=== PATIENT | male | born 1945 | race Caucasian/White ===

== ENCOUNTER 2017-07-06 01:42 | Inpatient (IN) | payer OTHER, MEDICARE ==
[~2017-07-06] VITALS: Ht 167.6 cm; Wt 114.0 kg
[~2017-07-06 01:42] MED LIST: ALLOPURINOL300 M1 PO; AMLODIPINE BESYL5 M1 PO; ASPIRIN EC81 M1 PO; ATENOLOL-CHLOR1 EACH PO; ATORVASTATIN CA20 M1 PO; CARDURA4 M1 PO; DAILY MULTIPLE1 EACH PO; LEVOTHYROXINE125 MCG PO; POTASSIUM CITR10 ME1 PO; PROTONIX40 M3 PO; VITAMIN B122500 MC1 PO; VITAMIN D31000 UNI2 PO
--- NOTE | 2017-07-06 10:51 | Patient Discharge Instructions ---
Discharge Instructions General Discharge Information You were seen/treated for: RIGHT HIP PAIN You had these procedures: RIGHT TOTAL HIP REPLACEMENT Watch for these problems: FEVER OVER 101 DRAINAGE FROM WOUND UNABLE TO WEIGHT BEAR ON RIGHT LEG Do not soak the wound: Yes No bath, but you may shower: Yes Other wound care: DAILY DRY DRESSING CHANGE Diet Continue normal diet: Yes Activity Activity Self Limited: Yes Activity Limited to: Weight bear as tolerated Acute Coronary Syndrome Inclusion Criteria At DC or during hospital stay patient has or had the following: ACS DIAGNOSIS No Discharge Core Measures Meds if any: Prescribed or Continued at Discharge Meds if any: NOT Prescribed or Continued at Discharge Congestive Heart Failure Inclusion Criteria At DC or during hospital stay patient has or had the following: CHF DIAGNOSIS No Discharge Core Measures Meds if any: Prescribed or Continued at Discharge Meds if any: NOT Prescribed or Continued at Discharge Cerebrovascular accident Inclusion Criteria At DC or during hospital stay patient has or had the following: CVA/TIA Diagnosis No Discharge Core Measures Meds if any: Prescribed or Continued at Discharge Meds if any: NOT Prescribed or Continued at Discharge Venous thromboembolism Inclusion Criteria VTE Diagnosis No VTE Type NONE VTE Confirmed by (Test) NONE Discharge Core Measures - Per Current guidelines, there needs to be overlap - treatment for the first 5 days of Warfarin therapy. - If discharged on Warfarin prior to 5 days of - overlap therapy, the patient will need to be - assessed for post discharge needs including - *Post discharge parental anticoagulation - *Warfarin and/or parental anticoagulation education - *Follow up date to check INR post discharge At least 5 days overlap therapy as Inpatient No Meds if any: Prescribed or Continued at Discharge Note: Overlap Therapy is Warfarin and Anticoagulant Meds if any: NOT Prescribed or Continued at Discharge
--- NOTE | 2017-07-06 10:54 | Admission Core Measures ---
Acute Coronary Syndrome (CM) ACS Core Measures Acute Coronary Syndrome Diagnosis No Congestive Heart Failure (NEW) CHF Core Measures Congestive Heart Failure Diagnosis No Cerebrovascular Accident (NEW) CVA Core Measures CVA/TIA Diagnosis No Venous Thromboembolism VTE Core Froilan (View Protocol) VTE Risk Factors Surgery No Mechanical VTE Prophylaxis d/t N/A MechProphylax Ordered No VTE Pharm Prophylaxis d/t NA PharmProphylax ordered Problem List As ranked by this Provider includes Assessment & Plan 1. Unilateral primary osteoarthritis, right hip HOME MEDS Home Med List Allopurinol 300 MG TABLET 1 TAB PO DAILY ARTHRITIS (Reported) Amlodipine Besylate 5 MG TABLET 1 TAB PO DAILY HYPERTENSION (Reported) Aspirin (Ecotrin*) 81 MG TABLET.DR 1 TAB PO DAILY HEART HEALTH (Reported) Atenolol/Chlorthalidone (Atenolol-Chlorthalidone 100-25) 100 MG-25 MG TABLET 1 TAB PO DAILY HEART HEALTH (Reported) Atorvastatin Calcium 20 MG TABLET 1 TAB PO DAILY HYPERCHOLESTEROLEMIA ( Reported) Cholecalciferol (Vitamin D3) 1,000 UNIT TABLET 2 TAB PO DAILY SUPPLEMENT ( Reported) Cyanocobalamin (Vitamin B-12) (Vitamin B12) 2,500 MCG TABLET 1 TAB PO DAILY SUPPLEMENT (Reported) Doxazosin Mesylate (Cardura) 4 MG TABLET 1 TAB PO DAILY HEART HEALTH ( Reported) Levothyroxine Sodium 125 MCG TABLET 1 TAB PO DAILY HYPOTHYROID (Reported) Multivitamin (Daily Multiple Vitamin) 1 EACH TABLET 1 TAB PO DAILY SUPPLEMENT (Reported) Pantoprazole Sodium (Protonix) 40 MG TABLET.DR 1 TAB PO DAILY GERD (Reported) Potassium Citrate (Potassium Citrate ER) 10 MEQ (1,080 MG) TABLET.ER 4 TAB PO DAILY SUPPLEMENT (Reported)
--- NOTE | 2017-07-06 11:02 | Surgical Discharge Summary ---
Visit Information Visit Dates Admission Date: 07/06/17 Discharge Date: 07/07/17 History of Present Illness Chief Complaint: RIGHT HIP PAIN Medical History Cardiovascular: hypertension Isolation History: Standard Surgical History Pertinent Surgical History: non-contributory Review of Systems: as hpi Hospital Course Course Attending Physician: Félix Leon MD Primary Care Physician: Peyton GONZALEZ,Jesse Glover Hospital Course: PT PRESENTED TO [facility] FOR ELECTIVE RIGHT TOTAL HIP ARTHROPLASTY ON BY DR. LEON. PT TOLERATED THE PROCEDURE WELL. POST-OPERATIVELY HE WAS TOLERATING PO INTAKE, VOIDING SPONTANEOUSLY, PAIN WAS CONTROLLED WITH ORAL MEDICATION, WAS AMBULATING WITH PHYSICAL THERAPY AND WAS CLEARED FOR DISCHARGE Allergies: Coded Allergies: No Known Allergies (07/03/17) Disposition Summary Disposition Principal Diagnosis: RIGHT HIP OA Additional Diagnosis: SP R LISBETH Discharge Disposition: home health services Discharge Instructions General Discharge Information Code Status: Full Code Patient's Diet: REGULAR Patient's Activity: WBAT Follow-Up Instructions/Appts: FOLLOWUP WITH DR LEON IN 6 WEEKS Medications at Discharge Discharge Medications: Stop taking the following medications: Aspirin (Ecotrin*) 81 MG TABLET. ORAL DAILY Continue taking these medications: Allopurinol (Allopurinol) 300 MG TABLET 1 Tablet ORAL DAILY Comments: Last Taken: 07/07/17 Time: 920AM Potassium Citrate (Potassium Citrate ER) 10 MEQ (1,080 MG) TABLET.ER 4 Tablet ORAL DAILY Comments: NOT GIVEN Levothyroxine Sodium (Levothyroxine Sodium) 125 MCG TABLET 1 Tablet ORAL DAILY Comments: Last Taken: 07/07/17 Time: 600AM Amlodipine Besylate (Amlodipine Besylate) 5 MG TABLET 1 Tablet ORAL DAILY Comments: Last Taken: 07/07/17 Time: 920AM Atenolol/Chlorthalidone (Atenolol-Chlorthalidone 100-25) 100 MG-25 MG TABLET 1 Tablet ORAL DAILY Comments: Last Taken: 07/07/17 Time: 920AM Pantoprazole Sodium (Protonix) 40 MG TABLET. 1 Tablet ORAL DAILY Comments: NOT GIVEN PRILOSEC GIVEN IN SUBSTITUTION Doxazosin Mesylate (Cardura) 4 MG TABLET 1 Tablet ORAL DAILY Comments: Last Taken: 07/07/17 Time: 920AM Atorvastatin Calcium (Atorvastatin Calcium) 20 MG TABLET 1 Tablet ORAL DAILY Comments: NOT GIVEN Cyanocobalamin (Vitamin B-12) (Vitamin B12) 2,500 MCG TABLET 1 Tablet ORAL DAILY Instructions: CLIENT TAKES 1,000 MCG DAILY Comments: NOT GIVEN Cholecalciferol (Vitamin D3) 1,000 UNIT TABLET 2 Tablet ORAL DAILY Comments: NOT GIVEN Multivitamin (Daily Multiple Vitamin) 1 EACH TABLET 1 Tablet ORAL DAILY Comments: NOT GIVEN Start taking the following new medications: Aspirin (Ecotrin*) 325 MG TABLET. 1 Tablet ORAL TWICE DAILY Qty = 60 No Refills Instructions: . Comments: Last Taken: 07/07/17 Time: 920AM Hydromorphone HCl (Dilaudid) 2 MG TABLET 1-2 Tablet ORAL EVERY 4-6 HOURS NEEDED as needed for PAIN Qty = 36 No Refills Instructions: . Comments: Last Taken: 07/07/17 Time: 815AM Docusate Sodium (Colace) 100 MG CAPSULE 1 Capsule ORAL TWICE DAILY Qty = 14 No Refills Instructions: STOP TAKING IF YOU DEVELOP LOOSE STOOL/DIARRHEA. Comments: Last Taken: 07/07/17 Time: 920AM Polyethylene Glycol 3350 (Miralax) 17 GRAM POWD.PACK 1 Packet ORAL DAILY Qty = 7 No Refills Instructions: dissolve in water. STOP TAKING IF YOU DEVELOP LOOSE STOOL/DIARRHEA. Comments: NOT GIVEN Omeprazole Magnesium (Prilosec Otc) 20 MG TABLET. 1 Tablet ORAL DAILY Qty = 30 No Refills Comments: Last Taken: 07/07/17 Time: 920AM Copies To: Peyton GONZALEZ,Jesse Leon MD,Félix
[2017-07-06] MEDS ORDERED: ASPIRIN EC325 M2 PO (11:44)
[2017-07-06] MEDS ORDERED: PRILOSEC OTC20 M1 PO (11:44)
[2017-07-06] MEDS ORDERED: MIRALAX17 G1 PO (11:44)
[2017-07-06] MEDS ORDERED: DILAUDID2 M1 PO (11:44)
[2017-07-06] MEDS ORDERED: COLACE100 M1 PO (11:44)
--- NOTE | 2017-07-06 11:49 | RADIOLOGY REPORT ---
EXAMINATION: XR HIP, RIGHT CLINICAL INFORMATION: Status post right hip replacement. COMPARISON: There are no prior studies for comparison. TECHNIQUE: In PACU, frontal and crosstable lateral views of the right hip of the right hip. FINDINGS: The bipolar right hip prosthesis is visualized in anatomic alignment. Postoperative changes are present in the soft tissues in the lateral aspect of the right upper thigh.. IMPRESSION: Right bipolar hip prosthesis.
[2017-07-06 13:00] VITALS: BP 126/76
--- NOTE | 2017-07-06 14:20 | PN- Orthopedic ---
Subjective Subjective: POC feeling ok, slight nausea, no vomiting. oob with pt- stood, still numb due to void postop No cp/sob. Objective Vital Signs and I&Os Vital Signs Date Time Temp Pulse Resp B/P B/P Pulse O2 O2 Flow FiO2 Mean Ox Delivery Rate 07/06 1300 97.4 63 16 126/76 92 Room Air Intake & Output 07/06 1600 07/06 0800 07/06 0000 07/05 1600 07/05 0800 07/05 0000 Intake Total Output Total Balance Patient 237 lb Weight Weight Reported by Patient Measurement Method Physical Exam: gen- nad, sitting in chair card- s1s2 rrr pulm- ctab abd- soft nt ext- r hip dressing cdi, ice in place, calves soft nt, +dorsi/plantar flexion, sensation diminished bl feet, feet warm Current Medications: Current Medications Sig/Godfrey Start time Last Medication Dose Route Stop Time Status Admin Acetaminophen 1,000 MG Q6 07/06 1200 AC 07/06 IV 07/07 0601 1302 Acetaminophen 0 .STK-MED ONE 07/06 0808 DC PO Acetaminophen 975 MG ONCE 07/06 0000 DC PO 07/06 2359 Allopurinol 300 MG DAILY 07/07 1000 DC PO Allopurinol 300 MG DAILY 07/07 1000 AC PO Amlodipine Besylate 5 MG DAILY 07/07 1000 DC PO Amlodipine Besylate 5 MG DAILY 07/07 1000 AC PO Aspirin 325 MG BID 07/06 2200 AC PO Atenolol 100 MG DAILY 07/07 1000 DC PO Atenolol 100 MG DAILY 07/07 1000 AC PO Atorvastatin Calcium 20 MG 1700 07/07 1700 DC PO Atorvastatin Calcium 20 MG 1700 07/07 1700 AC PO Cefazolin Sodium 2 GM IQ8 07/06 1600 AC N/A 1 UNIT IV 07/07 0029 Cefazolin Sodium 2,000 MG ONCE 07/06 0000 DC IV 07/06 2359 Chlorthalidone 25 MG DAILY 07/07 1000 AC PO Dextrose/Sodium 1,000 ML .[id number] 07/06 1300 AC 07/06 Chloride IV 1302 Docusate Sodium 100 MG DAILY NEEDED PRN 07/06 1300 AC PO Doxazosin Mesylate 4 MG DAILY 07/07 1000 DC PO Doxazosin Mesylate 4 MG DAILY 07/07 1000 AC PO Hydromorphone HCl 2 MG Q4P PRN 07/06 1300 AC PO Hydromorphone HCl 4 MG Q4P PRN 07/06 1300 AC PO Ketorolac 15 MG Q8 PRN 07/06 1045 AC Tromethamine IV Levothyroxine Sodium 0.125 MG DAILY AC 07/07 0700 DC PO Levothyroxine Sodium 0.125 MG DAILY AC 07/07 0700 AC PO Morphine Sulfate 2 MG Q1P PRN 07/06 1300 AC IV Omeprazole 40 MG DAILY AC 07/07 0700 DC PO Omeprazole 20 MG DAILY AC 07/07 0700 CAN PO Omeprazole 40 MG DAILY AC 07/07 0700 DC PO Omeprazole 20 MG DAILY AC 07/07 07 AC PO Ondansetron HCl 4 MG Q6P PRN 07/06 1300 AC IV Oxycodone HCl 0 .STK-MED ONE 07/06 0807 DC PO Oxycodone HCl 10 MG ONCE 07/06 0000 DC PO 07/06 2359 Polyethylene Glycol 17 GM DAILY NEEDED PRN 07/06 1300 AC PO Promethazine HCl 12.5 MG Q6P PRN 07/06 1300 AC IV 07/13 1044 Assessment/Plan Assessment/Plan A- POD0 sp R LISBETH, with residual effects of spinal anesthesia in place, otherwise stable. P- prn pain meds prn antiemetics due to void postop, keep IVF ASA BID, ALPs OOB, PT, WBAT reg diet as tolerated home meds Dc planning Core Measures Venous Thromboembolism VTE Risk Factors Surgery No Mechanical VTE Prophylaxis d/t N/A MechProphylax Ordered No VTE Pharm Prophylaxis d/t NA PharmProphylax ordered
--- NOTE | 2017-07-06 15:13 | Operative Report ---
Operative/Inv Procedure Report Surgery Date: 07/06/17 Name of Procedure: Right total hip replacement Pre-Operative Diagnosis: Primary right hip DJD Post-Operative Diagnosis: Same Estimated Blood Loss: 250 Surgeon/Locomotive Pipe Fitter: Leon GONZALEZ,Félix Mosqueda Anesthesia: block Operative/Procedure Note Note: Description of Procedure: The patient was taken to the operating room and positively identified. After induction of spinal anesthesia and administration of appropriate pre-operative antibiotics, the patient was positioned supine on the operating room table and all bony prominences were well padded. After performing a surgical timeout, the right lower extremity was prepped and draped in the usual sterile fashion. A direct anterior approach was made to the right hip. The incision was carried sharply through superficial soft tissues to the level of the fascia. Meticulous hemostasis was maintained with Bovie electocautery. The fascia over the tensor fascia joseluis muscle was opened sharply and the interval between the TFL and the sartorius was entered bluntly taking care to stay lateral to the lateral femoral cutaneous nerve. Retractors were placed around the femoral neck and the pericapsular fat was identified. The ascending branches of the lateral femoral circumflex vessels were identified and carefully coagulated. The pericapsular fat and anterior capsule were then resected. A napkin ring osteotomy was performed and the femoral head was removed without difficulty. Attention was then turned to the acetabulum. After appropriate placement of retractors, the acetabulum was exposed. Soft tissue was cleaned from the acetabular margin and notch. Overhanging osteophytes were removed and the teardrop was exposed. The acetabulum was then sequentially reamed to accept a 62 mm Corona Tritanium hemispherical cluster hole shell. This was impacted into place in the appropriate position and fitted with a 36 mm Trident X3 zero degree polyethylene insert. Attention was then turned to the femur. After performing the appropriate ligament releases, the proximal femur was exposed. It was then sequentially broached to accept a size 5 Corona Anato stem. This was trialed for leg length and stability. The trial component was removed and the final component was impacted into place. The trunnion was carefully cleaned and fit with a 36 mm, - 2.5 Biolox delta ceramic femoral head. The hip was reduced and put through a full range of motion and found to be stable. The articular space was then irrigated with sterile saline. The periarticular soft tissues were infilitrated with Marcaine. The fascial layer was closed with interrupted #1 vicryl suture and the skin was re-approximated with interrupted 2 -0 vicryl. The skin was closed with a running 3-0 V-Lock suture. Steri-strips and a sterile dressing were applied. The patient was awakened and taken to the recovery room in satisfactory condition.
[2017-07-06 17:56] VITALS: BP 126/72
[2017-07-06 21:45] VITALS: BP 132/74
[2017-07-07 00:03] VITALS: BP 132/78
[2017-07-07 04:00] VITALS: BP 134/74
[2017-07-07 07:51] VITALS: BP 130/66
--- NOTE | 2017-07-07 09:26 | PN- Orthopedic ---
Subjective Subjective: No acute overnight events reported. Tolerating pain. Denies chest pain, shortness of breath and difficulty breathing. Denies nausea and vomitting. Tolerating diet. Has voided. Has ambulated. Cleared physical therapy. Is interested in being discharge to home today. Objective Vital Signs and I&Os Vital Signs Date Time Temp Pulse Resp B/P B/P Pulse O2 O2 Flow FiO2 Mean Ox Delivery Rate 07/07 0751 98.0 74 18 130/66 95 Room Air 07/07 0400 98.5 73 18 134/74 96 Room Air 07/07 0003 98.2 73 18 132/78 94 Room Air 07/06 2145 98.3 75 18 132/74 93 07/06 1756 97.7 77 18 126/72 95 07/06 1300 97.4 63 16 126/76 92 Room Air Intake & Output 07/07 1600 07/07 0800 07/07 0000 07/06 1600 07/06 0800 07/06 0000 Intake Total 700 500 650 Output Total 750 Balance 700 -250 650 Intake, IV 600 300 150 Intake, Oral 100 200 500 Output, Urine 750 Patient 251 lb 237 lb Weight Weight Reported by Patient Measurement Method Physical Exam: General: Alert and oriented x3, no acute distress Cardiac: RRR, s1s Pulm: CTA bilaterally ABD: soft, non-tender, non-distended Extremities: Neurovascularly intact bilaterally. Bilateral calves soft and non -tender. Dressing dry and intact. Thigh compartment soft. Assessment/Plan Assessment/Plan This is a 71 year old male, POD 1, s/p L THR, doing well -DC iv fluids -OOB, WBAT, Cleared by PT -ASA 325 bid to continue x3 weeks for dvt ppx -Prilosec daily for gi ppx -Diet as tolerated -PO dilaudid for pain -Discharge to home today -Will discuss with Dr. Quintero Core Measures Venous Thromboembolism VTE Risk Factors Surgery No Mechanical VTE Prophylaxis d/t N/A MechProphylax Ordered No VTE Pharm Prophylaxis d/t NA PharmProphylax ordered
[2017-07-07 09:35] LABS: ABSOLUTE BASOPHIL COUNT 0 /CUMM (0.0-0.2); ABSOLUTE EOSINOPHIL COUNT 0 /CUMM (0.0-0.7); ABSOLUTE GRANULOCYTE CT 8.6 /CUMM (1.4-6.5); ABSOLUTE LYMPH COUNT 1.3 /CUMM (1.2-3.4); BASOPHIL % 0.1 % (0.0-2.0); EOSINOPHIL % 0 % (0-5); GRANULOCYTE % 78.7 % (42.2-75.2); MEAN CORPUSCULAR HGB 31.9 PG (27.0-31.0); MEAN CORPUSCULAR HGB CONC 33.5 G/DL (33.0-37.0); MEAN CORPUSCULAR VOLUME 95.4 FL (80.0-94.0); MEAN PLATELET VOLUME 7.8 FL (7.4-10.4); PLATELET COUNT 254 /CUMM (130-400); RBC DISTRIBUTION WIDTH 14.4 % (11.5-14.5); RED BLOOD CELL CT 3.89 /CUMM (4.70-6.10); WHITE BLOOD CELL COUNT 10.9 /CUMM (4.8-10.8)
[2017-07-07] MEDS ORDERED: DILAUDID2 M1 PO (11:14)
[2017-07-07] MEDS ORDERED: ASPIRIN EC325 M2 PO (11:14)
[2017-07-07] MEDS ORDERED: MIRALAX17 G1 PO (11:14)
[2017-07-07] MEDS ORDERED: COLACE100 M1 PO (11:14)
== END 2017-07-07 11:40 | disposition home health service (06) | DRG 470 ==
LOC: SDA 01:42 → ENRESERV 11:29 → CANRESERV 11:29 → ENRESERV 11:30 → ENTRNSPT 12:22 → EDTRNSPTSTS 12:26 → EDTRNSPT 12:26 → CMPTRNSPT 12:47 → 2NA 12:51 → ENPENDDIS 07-07 09:35 → ENTRNSPT 07-07 11:28 → EDTRNSPT 07-07 11:31 → EDTRNSPTSTS 07-07 11:31 → CMPTRNSPT 07-07 11:37 → 2NA 07-07 11:40
PROVIDERS: Physician Assistant Surgical
PROC: 0SR904Z Replacement of Right Hip Joint with Ceramic on Polyethylene Synthetic Substitute, Open Approach (ICD-10-PCS; principal; 2017-07-06)
DX: M16.11 Unilateral primary osteoarthritis, right hip (principal); E11.9 Type 2 diabetes mellitus without complications; E03.9 Hypothyroidism, unspecified; Z79.82 Long term (current) use of aspirin; I10 Essential (primary) hypertension; M10.9 Gout, unspecified; K21.9 Gastro-esophageal reflux disease without esophagitis; E78.5 Hyperlipidemia, unspecified; M19.90 Unspecified osteoarthritis, unspecified site; Z87.442 Personal history of urinary calculi
CPT/HCPCS: 2NAP; 36592; 73502-RT; 82436; 97116-GO; 97161-GP; 97530-GO; J0131; J0690; J0735; J1100; J2550; J3490; J7042

== ENCOUNTER 2018-01-16 19:18 | Emergency (ER) | payer OTHER, MEDICARE ==
[~2018-01-16] VITALS: Ht 167.6 cm; Wt 106.6 kg
[~2018-01-16 19:18] MED LIST changes: +ASPIRIN EC325 M2 PO; +COLACE100 M1 PO; +DILAUDID2 M1 PO; +MIRALAX17 G1 PO; +PRILOSEC OTC20 M1 PO
--- NOTE | 2018-01-16 19:52 | ED GENERAL ADULT ---
History of Present Illness General Chief Complaint: General Adult Stated Complaint: " ?RT HIP REINJURY" Source: patient, family, old records Exam Limitations: no limitations Vital Signs & Intake/Output Vital Signs & Intake/Output Vital Signs Date Time Temp Pulse Resp B/P B/P Pulse O2 O2 Flow FiO2 Mean Ox Delivery Rate 01/160 97.8 01/16 2114 97.8 84 18 148/83 98 Room Air 01/16 1934 97.6 48 18 147/68 98 Room Air ED Intake and Output 01/17 0000 01/16 1200 Intake Total Output Total Balance Patient 235 lb Weight Weight Reported by Patient Measurement Method Allergies Coded Allergies: No Known Allergies (07/03/17) Reconcile Medications Allopurinol 300 MG TABLET 1 TAB PO DAILY ARTHRITIS (Reported) Amlodipine Besylate 5 MG TABLET 1 TAB PO DAILY HYPERTENSION (Reported) Aspirin (Ecotrin*) 325 MG TABLET.DR 1 TAB PO BID ANTICOAGULATION . Atenolol/Chlorthalidone (Atenolol-Chlorthalidone 100-25) 100 MG-25 MG TABLET 1 TAB PO DAILY HEART HEALTH (Reported) Atorvastatin Calcium 20 MG TABLET 1 TAB PO DAILY HYPERCHOLESTEROLEMIA ( Reported) Cholecalciferol (Vitamin D3) 1,000 UNIT TABLET 2 TAB PO DAILY SUPPLEMENT ( Reported) Cyanocobalamin (Vitamin B-12) (Vitamin B12) 2,500 MCG TABLET 1 TAB PO DAILY SUPPLEMENT (Reported) CLIENT TAKES 1,000 MCG DAILY Docusate Sodium (Colace) 100 MG CAPSULE 1 CAP PO BID STOOL SOFTENER STOP TAKING IF YOU DEVELOP LOOSE STOOL/DIARRHEA. Doxazosin Mesylate (Cardura) 4 MG TABLET 1 TAB PO DAILY HEART HEALTH ( Reported) Hydromorphone HCl (Dilaudid) 2 MG TABLET 1-2 TAB PO Q4-6 PRN PRN PAIN . Levothyroxine Sodium 125 MCG TABLET 1 TAB PO DAILY HYPOTHYROID (Reported) Multivitamin (Daily Multiple Vitamin) 1 EACH TABLET 1 TAB PO DAILY SUPPLEMENT (Reported) Omeprazole Magnesium (Prilosec Otc) 20 MG TABLET.DR 1 TAB PO DAILY GI PROTECTION Oxycodone HCl/Acetaminophen (Percocet 5-325 MG Tablet) 5 MG-325 MG TABLET 1 TAB PO Q6P PRN pain Pantoprazole Sodium (Protonix) 40 MG TABLET.DR 1 TAB PO DAILY GERD (Reported) Polyethylene Glycol 3350 (Miralax) 17 GRAM POWD.PACK 1 PAC PO DAILY CONSTIPATION dissolve in water. STOP TAKING IF YOU DEVELOP LOOSE STOOL/DIARRHEA. Potassium Citrate (Potassium Citrate ER) 10 MEQ (1,080 MG) TABLET.ER 4 TAB PO DAILY SUPPLEMENT (Reported) Triage Note: PT FROM HOME C/O OF RIGHT HIP PAIN, PT HAD A HIP REPLACEMENT IN JUNE. PT STATES FOR THE PAST FEW WEEKS THE PAIN HAS INTENSIFIIED POST FALLING. TODAY PT WAS FISHING AND PT ENDING UP FALLING ON A ROCK TWISTING TO THE LEFT AND RIGHT. PT DENIES HEADSTRIKE OR LOC. FARZANA GARCIA IN TRIAGE. PT STATES UNABLE TO WEIGHT BEAR ON RIGHT SIDE. PT LAST MEDICATED WITH 2 HYDROCODONE PILLS 5 HRS PRIOR. Triage Nurses Notes Reviewed? yes HPI: This is a 72-year-old male with history of hypertension, chronic back pain, right hip arthroplasty in June, presenting to the emergency department with right hip pain. Patient states that he was fishing, slipped on a loose stone and awkwardly twisted his right leg and fell, striking his right lateral hip in the process. He denies striking his head. He denies any other pain apart from right hip pain which is exacerbated by bearing weight and worse also with extension flexion of the right hip. He has had no lightheadedness, headache, neck pain, shortness of breath, chest pain. He had been taking small doses of previously prescribed opiate medication at home with moderate improvement. He is concerned that he fractured or dislocated his right hip. (Carlos Guerra MD) Past History Travel History Traveled to [place] past 21 day No Medical History Any Pertinent Medical History? see below for history Neurological: NONE EENT: NONE Cardiovascular: hypertension Respiratory: NONE Gastrointestinal: GERD Hepatic: NONE Renal: NONE Musculoskeletal: chronic back pain, osteoarthritis Psychiatric: NONE Endocrine: hypothyroidism Blood Disorders: NONE Cancer(s): NONE Surgical History Surgical History: non-contributory Psychosocial History Who do you live with Patient and family What is your primary language [place] Tobacco Use: Quit >30 days ago Family History Hx Contributory? No (Carlos Guerra MD) Review of Systems Review of Systems Constitutional: Reports: no symptoms. Musculoskeletal: Reports: see HPI. All Other Systems: Reviewed and Negative (Carlos Guerra MD) Physical Exam Physical Exam General Appearance: well developed/nourished, no apparent distress, alert, comfortable Comments: Obese elderly male, no acute distress. Neurologically intact and normal. HEENT exam within normal limits. Neck is supple with no midline tenderness. Cardiopulmonary exam unremarkable. Abdomen is soft and nontender. Pain to deep palpation of right lateral hip is noted. No skin changes. Surgical scar appears well-healed. Intact range of motion to right hip. No pain to right knee with passive and active extension/flexion. No laxity noted. Intact neurovascularly in all extremities. Core Measures ACS in differential dx? No CVA/TIA Diagnosis: No Sepsis Present: No Sepsis Focused Exam Completed? No (Carlos Guerra MD) Progress Differential Diagnoses I considered the following diagnoses in my evaluation of the patient: Clinically suspect sprain, contusion. Lower suspicion for fracture dislocation given exam. Low suspicion for occult trauma. Doubt acute metabolic derangement or acute cardiopulmonary process. Of note, patient mildly bradycardic, although asymptomatic in triage. For this reason, he has a EKG performed which is unremarkable. Plan of Care: Orders Procedure Date/time Status EKG 01/16 1935 Active Plan for pain control, x-ray, reassessment. X-ray unremarkable. Patient able to tolerate weightbearing with walker assistance. He is discharged home with short course of opiate medication and return precautions. He is accompanied by his . Initial ED EKG: normal axis, normal intervals, normal p-waves, normal QRS complex, normal sinus rhythm, no ST T wave changes (Carlos Guerra MD) Departure Departure Time of Disposition: 2249 Disposition: HOME OR SELF CARE Condition: Stable Clinical Impression Primary Impression: Right hip pain Referrals: Peyton GONZALEZ,Jesse Glover (PCP/Family) Additional Instructions: Thank you for coming to [facility] today. As we discussed, there appears to be no acute fracture or dislocation of the right hip. Likely, you have sprained the muscles around the hip. It is also possible that you have a large bruise. Please use the walker as needed for pain. I recommend that you walk as much as you are able to in order to prevent any stiffening to the joint. Please take the pain medication that I prescribed as needed for breakthrough pain. In addition, I recommend that you take 600 mg of ibuprofen every 6-8 hours as needed for pain. You can also use ice wrapped in a towel and placed on the area of greatest pain for about 30 minutes 2-3 times per day. Please return to the emergency department if your pain worsens or you develop any new or concerning symptoms such as headache, lightheadedness, shortness of breath, chest pain, abdominal pain, nausea or vomiting. Please follow-up with your primary doctor as we discussed. Departure Forms: Customer Survey General Discharge Information Prescriptions: Current Visit Scripts Oxycodone HCl/Acetaminophen (Percocet 5-325 MG Tablet) 1 TAB PO Q6P PRN pain #10 TAB (Carlos Guerra MD) Resident Co-Sign Statement Statement: ED Attending supervision documentation- [] I saw and evaluated the patient. I have also reviewed all the pertinent lab results and diagnostic results. I agree with the findings and the plan of care as documented in the Resident's documentation. [x] I have reviewed the ED Record and agree with the Resident's documentation. [] Additions or exceptions (if any) to the Resident's note and plan are summarized below: [] (Angy Watson MD) Critical Care Note Critical Care Note Critical Care Time: non-applicable (Carlos Guerra MD)
--- NOTE | 2018-01-16 20:56 | RADIOLOGY REPORT ---
EXAMINATION: XR HIP, RIGHT CLINICAL INFORMATION: Hip pain. Dislocation. COMPARISON: Right hip radiography 07/06/2017. TECHNIQUE: Two views of the right hip. FINDINGS: Hardware from right hip arthroplasty redemonstrated. These prosthetic femoral component appears well situated over the acetabular component. No fracture or dislocation is demonstrated. No abnormal periprosthetic lucency demonstrated. Lower lumbar degenerative change. IMPRESSION: No radiographic evidence of right hip dislocation. No explanation for the patient's right hip pain.
[2018-01-16 21:14] VITALS: BP 148/83
[2018-01-16] MEDS ORDERED: PERCOCET 5-3251 EACH PO (22:52)
== END 2018-01-16 23:10 ==
LOC: ERH 19:18
DX: M25.551 Pain in right hip (principal); I10 Essential (primary) hypertension; K21.9 Gastro-esophageal reflux disease without esophagitis; E03.9 Hypothyroidism, unspecified; Z87.891 Personal history of nicotine dependence
CPT/HCPCS: 73502-RT; 93005; 93010